=== PATIENT | female | born 1995 | race Two or more races ===

== ENCOUNTER 2018-09-09 11:58 | Observation (INO) | payer SELFPAY ==
[~2018-09-09] VITALS: Ht 162.6 cm; Wt 109.3 kg
[2018-09-09] MEDS ORDERED: IV RINGERS,LACTATED 1000ML 1,000 ML IV SCH (12:15)
[2018-09-09 12:37] LABS: BILIRUBIN,URINE NEGATIVE (NEG); CLARITY,URINE CLEAR; COLOR,URINE YELLOW; NITRITE,URINE NEGATIVE (NEG); PROTEIN,URINE NEGATIVE (NEG-TRACE); UROBILINOGEN,URINE 0.2 mg/dL (0.2 mg/dL)
[2018-09-09 12:44] LABS: BARBITURATES NEG (NEG); BENZODIAZEPINES NEG (NEG); CANNABINOIDS NEG (NEG); COCAINE NEG (NEG); METHADONE NEG (NEG); OPIATES NEG (NEG); PHENCYCLIDINE NEG (NEG)
[2018-09-09 12:52] LABS: AMPHETAMINE/METHAMPHETAMINE NEG (NEG)
[2018-09-09 12:54] LABS: BACTERIA,URINE MODERATE /HPF (0-FEW); SQUAMOUS EPITHELIAL CELL,UR FEW /LPF
[2018-09-09] MEDS ORDERED: ACETAMINOPHEN 500 MG TABLET PO ONE (13:15)
== END 2018-09-09 15:26 | disposition home or self-care (01) ==
LOC: 3 SO LND 11:58
PROVIDERS: ADMIT Specialist; ATTEND Specialist
DX: O26.892 Other specified pregnancy related conditions, second trimester (principal); R51 Headache; R19.7 Diarrhea, unspecified; R10.9 Unspecified abdominal pain; O99.89 Other specified diseases and conditions complicating pregnancy, childbirth and the puerperium; M54.9 Dorsalgia, unspecified; N89.8 Other specified noninflammatory disorders of vagina; Z3A.32 32 weeks gestation of pregnancy
CPT/HCPCS: 80307; 81001; 87086; G0378; G0379

== ENCOUNTER → 2019-08-04 15:36 | Emergency (ER) | payer OTHER ==
[~2019-08-04] VITALS: Ht 162.6 cm; Wt 111.0 kg
[~2019-08-04 15:36] MED LIST: IBUP-1027 PO
[2019-08-04 15:42] VITALS: BP 101/56
== END | disposition left against medical advice (07) ==
LOC: ER 15:36
DX: O46.93 Antepartum hemorrhage, unspecified, third trimester (principal); R10.9 Unspecified abdominal pain; Z3A.32 32 weeks gestation of pregnancy; Z53.21 Procedure and treatment not carried out due to patient leaving prior to being seen by health care provider

== ENCOUNTER 2019-08-04 16:25 | Observation (INO) | payer OTHER ==
[2018-10-28 14:30] VITALS: BP 111/76
[2019-08-04] MEDS ORDERED: ACETAMINOPHEN 500 MG TABLET PO ONE (16:45)
== END 2019-08-04 17:33 | disposition home or self-care (01) ==
LOC: 3 SO LND 16:25
PROVIDERS: ADMIT Obstetrics & Gynecology; ATTEND Obstetrics & Gynecology
DX: O26.893 Other specified pregnancy related conditions, third trimester (principal); R10.9 Unspecified abdominal pain; Z3A.32 32 weeks gestation of pregnancy
CPT/HCPCS: G0378; G0379

== ENCOUNTER 2020-02-25 16:34 | Emergency (ER) | payer OTHER ==
[~2020-02-25] VITALS: Ht 162.6 cm; Wt 100.0 kg
--- NOTE | 2020-02-25 17:51 | RAD ---
EXAM: XR EXAM OF ANKLE_RIGHT 3VIEWS 02/25/2020 5:09 PM CLINICAL INDICATION: Right ankle pain after twisting injury COMPARISON: None TECHNIQUE: 3 views of the right ankle FINDINGS: No acute fracture. Alignment is normal. Ankle mortise is symmetric and talar dome is intac t. Mild lateral soft tissue swelling. Small ankle joint effusion. IMPRESSION: Mild lateral soft tissue swelling and small joint effusion. No acute osseous abnormality . Electronically signed by: Lizzette Allison MD (02/25/2020 5:48 PM) [id number]
--- NOTE | 2020-02-25 18:21 | PHYS DOC ---
Past Medical History Past Medical History: No Pertinent History Past Surgical History: No Surgical History Smoking Status: Never Smoker Alcohol Use: None General Adult EDM: Chief Complaint: ANKLE PROBLEM HPI: HPI: Patient is a 25 year old female who presents to the ED today complaining of mild right lateral ankle pain that began yesterday after she rolled her ankle at work. 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 She states the pain is worse on weightbearing though she is able to ambulate. Describes the pain as sharp and intermittent. She states elevation and ice Review of Systems: Review of Systems: Constitutional: Denies fever or chills. [] Musculoskeletal: Reports right ankle pain Integument: Denies rash. [] Neurologic: Denies headache, focal weakness or sensory changes. [] Psychiatric: Denies depression or anxiety. [] Heart Score: Risk Factors: Risk Factors: DM, Current or recent (<one month) smoker, HTN, HLP, family history of CAD, obesity. Risk Scores: Score 0 - 3: 2.5% MACE over next 6 weeks - Discharge Home Score 4 - 6: 20.3% MACE over next 6 weeks - Admit for Clinical Observation Score 7 - 10: 72.7% MACE over next 6 weeks - Early Invasive Strategies Allergies: Allergies: Allergies Coded Allergies Type Severity Reaction Last Updated Verified No Known Drug Allergies 09/09/18 No Physical Exam: PE: Constitutional: Well developed, well nourished, no acute distress, non-toxic appearance. [] Skin: Warm, dry, no erythema, no rash. [] Back: No tenderness, no CVA tenderness. [] Extremities: Right ankle with no obvious deformity. Mild soft tissue swelling noted on the right lateral ankle. Tenderness on palpation of the right lateral ankle. Full range of motion to the right ankle and foot. +2 right pedal pulse. Cap refill less than 2 seconds to right toes. Neurologic: Alert and oriented X 3, normal motor function, normal sensory function, no focal deficits noted. [] Psychologic: Affect normal, judgement normal, mood normal. [] Current Patient Data: Vital Signs: Vital Signs Date Time Temp Pulse Resp B/P (MAP) Pulse Ox O2 Delivery O2 Flow Rate FiO2 02/25/20 16:58 98.3 63 17 127/73 (91) 98 Room Air 98.3 EKG: EKG: [] Radiology/Procedures: Radiology/Procedures: []PROCEDURE: ANKLE RIGHT 3V EXAM: XR EXAM OF ANKLE_RIGHT 3VIEWS 02/25/2020 5:09 PM CLINICAL INDICATION: Right ankle pain after twisting injury COMPARISON: None TECHNIQUE: 3 views of the right ankle FINDINGS: No acute fracture. Alignment is normal. Ankle mortise is symmetric and talar dome is intact. Mild lateral soft tissue swelling. Small ankle joint effusion. IMPRESSION: Mild lateral soft tissue swelling and small joint effusion. No acute osseous abnormality. Electronically signed by: Lizzette Allison MD (02/25/2020 5:48 PM) [id number] DICTATED and SIGNED BY: LIZZETTE ALLISON MD DATE: 02/25/20 [id number] 0 Course & Med Decision Making: Course & Med Decision Making Pertinent Labs and Imaging studies reviewed. (See chart for details) This is a 25-year-old female patient presented to the ED today with right ankle pain that began yesterday after rolling her ankle. Right ankle x-rays interpreted by radiologist are negative for any acute findings. Aircast applied to the right ankle by the atmospheric technician, neurovascular exam is intact. Ice elevation encouraged. OTC pain relievers. Follow-up with Ortho in 1 week if pain persist. Dragon Disclaimer: Dragon Disclaimer: This electronic medical record was generated, in whole or in part, using a voice recognition dictation system. Departure Departure Impression: Primary Impression: Right ankle sprain Qualified Codes: S93.401A - Sprain of unspecified ligament of right ankle, initial encounter Disposition: 01 DC HOME SELF CARE/HOMELESS Condition: STABLE Referrals: NO PCP (PCP) ARMIDA LEON MD follow up in 1-2 weeks Patient Instructions: Ankle Sprain Additional Instructions: Your right ankle x-rays are negative for any acute findings. You have a right ankle sprain. Try to ice and elevate the ankle. Take [id number] pain relievers especially ibuprofen as needed for pain. Follow-up with the provided orthopedic doctor in 1 week if symptoms persist. RODOLFO GOLDBERG APRN Feb 25, 2020 18:21
[2020-02-25 19:00] VITALS: BP 117/72
== END 2020-02-25 19:32 | disposition home or self-care (01) ==
LOC: ER 16:34
DX: S93.401A Sprain of unspecified ligament of right ankle, initial encounter (principal); X50.9XXA Other and unspecified overexertion or strenuous movements or postures, initial encounter; Y93.89 Activity, other specified; Y92.89 Other specified places as the place of occurrence of the external cause; Y99.0 Civilian activity done for income or pay
CPT/HCPCS: 73610; 99283; L4350

== ENCOUNTER 2020-05-09 10:17 | Emergency (ER) | payer OTHER ==
[~2020-05-09] VITALS: Ht 162.6 cm; Wt 96.3 kg
[2020-05-09 10:26] VITALS: BP 112/75
[2020-05-09 10:40] LABS: BILIRUBIN,URINE NEGATIVE (NEG); CLARITY,URINE CLEAR; COLOR,URINE YELLOW; NITRITE,URINE NEGATIVE (NEG); PH,URINE 6.5 (<5.0-8.0); PROTEIN,URINE NEGATIVE (NEG-TRACE); UROBILINOGEN,URINE 0.2 mg/dL (0.2 mg/dL)
--- NOTE | 2020-05-09 10:41 | PHYS DOC ---
Past Medical History Past Medical History: No Pertinent History (ARCELIA OCONNOR RN ORTHOPEDIC) Past Surgical History: No Surgical History (ARCELIA OCONNOR RN ORTHOPEDIC) Smoking Status: Never Smoker Alcohol Use: None (ARCELIA OCONNOR RN ORTHOPEDIC) General Adult EDM: Chief Complaint: TEST HPI: HPI: Patient is a 25 year old female who presents with wanting a test today as she has been feeling more short of breath with exertion as she started exercising. She does not exercise regularly. She states that she was in January and miscarriaged in February and followed up with an SWINE NUTRITIONIST for this. She states since then she has been having a period that was regular for her and not heavy. She states that she has been taking tests and they have been inconclusive. She states she does not currently have an SWINE NUTRITIONIST to follow- up with. Patient denies abdominal pain, vaginal discharge, sexually-transmitted disease concerns, nausea, vomiting, diarrhea, constipation, headache, dizziness, syncope, chest pain, recent sickness, fever, cough. She denies any pain at all. (ARCELIA OCONNOR RN ORTHOPEDIC) Review of Systems: Review of Systems: Constitutional: Denies fever or chills. [] Eyes: Denies change in visual acuity. [] HENT: Denies nasal congestion or sore throat. [] Respiratory: Denies cough. + shortness of breath with exertion. [] Cardiovascular: Denies chest pain or edema. [] GI: Denies abdominal pain, nausea, vomiting, bloody stools or diarrhea. [] : Denies dysuria. + Wanting test [] Musculoskeletal: Denies back pain or joint pain. [] Integument: Denies rash. [] Neurologic: Denies headache, focal weakness or sensory changes. [] Endocrine: Denies polyuria or polydipsia. [] Lymphatic: Denies swollen glands. [] Psychiatric: Denies depression or anxiety. [] (ARCELIA OCONNOR RN ORTHOPEDIC) Heart Score: C/O Chest Pain: No Risk Factors: Risk Factors: DM, Current or recent (<one month) smoker, HTN, HLP, family history of CAD, obesity. Risk Scores: Score 0 - 3: 2.5% MACE over next 6 weeks - Discharge Home Score 4 - 6: 20.3% MACE over next 6 weeks - Admit for Clinical Observation Score 7 - 10: 72.7% MACE over next 6 weeks - Early Invasive Strategies (ARCELIA OCONNOR APRN) Allergies: Allergies: Allergies Coded Allergies Type Severity Reaction Last Updated Verified No Known Drug Allergies 09/09/18 No (ARCELIA OCONNOR APRN) Physical Exam: PE: Constitutional: Well developed, well nourished, no acute distress, non-toxic appearance. [] HENT: Normocephalic, atraumatic, bilateral external ears normal, oropharynx moist, no oral exudates, nose normal. [] Eyes: PERRLA, EOMI, conjunctiva normal, no discharge. [] Neck: Normal range of motion, no tenderness, supple, no stridor. [] Cardiovascular:Heart rate regular rhythm, no murmur [] Lungs & Thorax: Bilateral breath sounds clear to auscultation [] Abdomen: Bowel sounds normal, soft, no tenderness, no masses, no pulsatile masses. [] Skin: Warm, dry, no erythema, no rash. [] Back: No tenderness, no CVA tenderness. [] Extremities: No tenderness, no cyanosis, no clubbing, ROM intact, no edema. [] Neurologic: Alert and oriented X 3, normal motor function, normal sensory function, no focal deficits noted. [] Psychologic: Affect normal, judgement normal, mood normal. Normal physical exam [] (ARCELIA OCONNOR APRN) EKG: EKG: [] (ARCELIA OCONNOR APRN) Radiology/Procedures: Radiology/Procedures: [] Impression: [facility] [address] [place], [place] [id number] IMAGING REPORT Signed PATIENT: SHERRI RAMIRES ACCOUNT: [id number] : 1995 LOCATION: ER AGE: 25 SEX: F EXAM STATUS: PRE ER ORD. PHYSICIAN: ARCELIA OCONNOR APRN REASON: SOA WITH EXERTION PROCEDURE: PORTABLE CHEST 1V XR CHEST 1V History: Reason: SOA WITH EXERTION / Spl. Instructions: / History: Comparison: None. Findings: No consolidation or pleural effusion. Normal heart size. No pneumothorax. Impression: 1. No acute cardiopulmonary process. Electronically signed by: Ivan Corrigan DO (05/09/2020 10:46 AM) [id number] DICTATED and SIGNED BY: IVAN CORRIGAN DO DATE: 05/09/20 [id number] 0 (ARCELIA OCONNOR APRN) Course & Med Decision Making: Course & Med Decision Making Pertinent Labs and Imaging studies reviewed. (See chart for details) See HPI. Alert and oriented x4. Ambulatory with a steady gait. Speaks in full clear sentences. Skin pink warm and dry. Afebrile. Vital signs within normal limits. Abdomen soft and nontender. No CVA tenderness. Denies any urinary symptoms. Blood work is unremarkable. test both beta serum and urine test is negative. Patient to follow-up with her SWINE NUTRITIONIST if needed. [] (ARCELIA OCONNOR APRN) Dragon Disclaimer: Dragon Disclaimer: This electronic medical record was generated, in whole or in part, using a voice recognition dictation system. (ARCELIA OCONNOR APRN) Departure Departure Impression: Primary Impression: examination or test, negative result Additional Impressions: Fatigue Qualified Codes: R53.83 - Other fatigue UTI (urinary tract infection) Qualified Codes: N39.0 - Urinary tract infection, site not specified Disposition: 01 DC HOME SELF CARE/HOMELESS Condition: STABLE Referrals: NO PCP (PCP) Patient Instructions: Tests, Urinary Tract Infection Additional Instructions: Follow-up with an SWINE NUTRITIONIST if needed. Drink plenty of fluids. Take medication as prescribed and with food. You can running high fevers or have severe abdominal pain or nausea vomiting return emergency room. Scripts Cephalexin (CEPHALEXIN) 500 Mg Capsule 1 CAP PO BID, #20 CAP Prov: ARCELIA OCONNOR APRN 05/09/20 Attending Signature Attending Signature I have reviewed the PA/BRAZER INDUCTION's note and plan of care. I was available for consultation as needed during the patient's visit in the emergency department. I agree with the clinical impression, plan, and disposition. (SRUTHI CASEY DO) ARCELIA OCONNOR APRN May 09, 2020 10:41 SRUTHI CASEY DO May 09, 2020 12:12
--- NOTE | 2020-05-09 10:49 | RAD ---
XR CHEST 1V History: Reason: SOA WITH EXERTION / Spl. Instructions: / History: Comparison: None. Findings: No consolidation or pleural effusion. Normal heart size. No pneumothorax. Impression: 1. No acute cardiopulmonary process. Electronically signed by: Ivan Corrigan DO (05/09/2020 10:46 AM) [id number]
[2020-05-09 10:50] LABS: BACTERIA,URINE FEW /HPF (0-FEW); RBC,URINE OCC /HPF (0-2)
[2020-05-09 10:56] LABS: BASO % 1 % (0-3); EOS % 1 % (0-3); HEMATOCRIT 39.1 % (36.0-47.0); HEMOGLOBIN 12.9 g/dL (12.0-15.5); LYMPH % 14 % (24-48); MEAN CORPUSCULAR HEMOGLOBIN 26 pg (25-35); MEAN CORPUSCULAR HGB CONC 33 g/dL (31-37); MEAN CORPUSCULAR VOLUME 80 fL (79-100); MONO # 0.2 x10^3/uL (0.0-1.1); MONO % 3 % (0-9); NEUT # 5.4 x10^3/uL (1.8-7.7); NEUT % 81 % (31-73); PLATELET COUNT 282 x10^3/uL (140-400); RED BLOOD COUNT 4.88 x10^6/uL (3.50-5.40); RED CELL DISTRIBUTION WIDTH 15.4 % (11.5-14.5); WHITE BLOOD COUNT 6.7 x10^3/uL (4.0-11.0)
[2020-05-09 11:21] LABS: CALCIUM 8.8 mg/dL (8.5-10.1); CREATININE 0.8 mg/dL (0.6-1.0); GFR 107.6; POTASSIUM 4.2 mmol/L (3.5-5.1)
[2020-05-09 11:26] LABS: ALBUMIN 3.8 g/dL (3.4-5.0); ALBUMIN/GLOBULIN RATIO 1.1 (1.0-1.7); TOTAL BILIRUBIN 0.2 mg/dL (0.2-1.0); TOTAL PROTEIN 7.3 g/dL (6.4-8.2)
[2020-05-09] MEDS ORDERED: CEPH500C PO (11:42)
== END 2020-05-09 11:47 | disposition home or self-care (01) ==
LOC: ER 10:17
DX: R53.83 Other fatigue (principal); N39.0 Urinary tract infection, site not specified; Z32.02 Encounter for pregnancy test, result negative; R06.02 Shortness of breath
CPT/HCPCS: 36415; 71045; 80053; 81001; 81025; 84702; 85025; 87086; 99284